=== PATIENT | female | born 1985 | race Caucasian/White ===

== ENCOUNTER 2016-12-26 12:54 | Emergency (ER) | payer OTHER ==
[2016-12-26 13:01] VITALS: BP 107/50; PULSE 100; RESP 18; TEMP 98.9
[2016-12-26] MEDS ORDERED: LIDOCAINE 5% PATCH TOPICAL STA (13:22)
--- NOTE | 2016-12-26 13:23 | ED ---
Back Pain HPI - General Chief Complaint: Back Pain/Injury Stated Complaint: Back Pain Time Seen by Provider: 12/26/16 13:06 Source: patient Limitations: no limitations - History of Present Illness Initial Comments: Patient is a 31-year-old female with history of degenerative disc disease presenting with left back pain. Onset was last night. Patient states she was playing games with her son and a "nicolette chair." Once patient got out of the chair she had left-sided pain which was not relieved with [place], Motrin or heating pad. If patient lays still there is no pain. Patient denies history of IV drug abuse, prolonged corticosteroids, trauma, history of cancer. Patient denies any weakness or numbness. Denies saddle anesthesia. Denies any comments of bowel or bladder. - Related Data Home Medications Medication Instructions Recorded Confirmed Ibuprofen [Motrin] 400 - 800 mg PO Q6HR PRN 11/04/16 11/04/16 Previous Rx's Medication Instructions Recorded Cyclobenzaprine [Flexeril] 5 mg PO HS PRN #14 tab 11/04/16 HYDROcodone/APAP 5-325MG [[place] 1 - 2 tab PO Q6HR PRN #20 tab 11/04/16 5-325] Cyclobenzaprine [Flexeril] 5 mg PO TID PRN #14 tablet 12/26/16 HYDROcodone/APAP 5-325MG [[place] 5] 1 each PO Q6HR PRN #6 tab 12/26/16 Ibuprofen [Motrin] 600 mg PO Q6HR PRN #20 tab 12/26/16 Allergies Allergy/AdvReac Type Severity Reaction Status Date / Time No Known Allergies Allergy Verified 12/26/16 13:01 Review of Systems ROS Statement: Those systems with pertinent positive or pertinent negative responses have been documented in the HPI. Constitutional: No fever and no chills. HENT: No congestion, no rhinorrhea and no sore throat. Eyes: No discharge and no redness. Respiratory: No cough and no shortness of breath. Cardiovascular: No chest pain and no palpitations. Gastrointestinal: No nausea, no vomiting, no abdominal pain and no diarrhea. Genitourinary: No dysuria and no hematuria. Musculoskeletal: +back pain and no arthralgias. Skin: No pallor and no rash. Neurological: No dizziness and No headaches. ROS Other: All systems not noted in ROS Statement are negative. Past Medical History Past Medical History: No Reported History Additional Past Medical History / Comment(s): DDD, low back pain History of Any Multi-Drug Resistant Organisms: MRSA Date of last positivie culture/infection: 2012 MDRO Source:: left hand Past Surgical History: Tonsillectomy Past Anesthesia/Blood Transfusion Reactions: No Reported Reaction Past Psychological History: Anxiety Additional Psychological History / Comment(s): Pt resides with significant other. She is independent. Smoking Status: Current every day smoker Past Alcohol Use History: Occasional Additional Past Alcohol Use History / Comment(s): Pt states she started smoking at age 16 yrs (2000) Past Drug Use History: Marijuana Additional Drug Use History / Comment(s): Pt states she smokes marijuana on occasion. - Past Family History Father Family Medical History: No Reported History Additional Family Medical History / Comment(s): Father is healthy Mother Family Medical History: No Reported History Additional Family Medical History / Comment(s): Mother is healthy General Exam - General Exam Comments Initial Comments: Constitutional: Patient appears well-developed and well-nourished. Mild distress with movement. Head: Normocephalic and atraumatic. Eyes: Conjunctivae and EOM are normal. Right eye exhibits no discharge. Left eye exhibits no discharge. No scleral icterus. Neck: Normal range of motion. Neck supple. Cardiovascular: Normal rate and regular rhythm. No murmur heard. Pulmonary/Chest: Effort normal and breath sounds normal. No respiratory distress. No wheezes. Abdominal: Soft. No distension. There is no tenderness. There is no rebound and no guarding. Musculoskeletal: Patient with point muscular tenderness to left lower lumbar region. No numbness of lower extremities. No saddle anesthesia. Negative straight leg bilaterally. Distal pulses, sensation, motor intact. Neurological: Patient alert and oriented to person, place, and time. Skin: Skin is warm and dry. Not diaphoretic. No rash. Nursing notes and vitals reviewed. Limitations: no limitations Course Vital Signs 12/26/16 12:59 Temperature 98.9 F Pulse Rate 100 Respiratory 18 Rate Blood Pressure 107/50 O2 Sat by Pulse 97 Oximetry - Reevaluation(s) Reevaluation #1: 12/26/16 13:33 Patient requesting refill of [place] for which was written for #20 last time and October 2016. Informed patient that I will give her #6 and use lidocaine, Motrin and Flexeril. Patient agreeable with the plan. Medical Decision Making - Medical Decision Making Patient is a 31-year-old female presenting with nontraumatic back pain. Patient with point tenderness to left lower muscle a lumbar region. No saddle anesthesia; no bowel or bladder incontinence. Patient can be treated outpatient with pain regimen including lidocaine patch, [place], Flexeril and Motrin. Patient Prior to discharge, patient was resting comfortably in bed. Course of stay improved. Tolerable pain but home pain plan in place. Discussed physical exam and diagnostic tests with patient. Questions answered and patient is agreeable to discharge with close follow up with Primary Care Physician. Instructed to return to Emergency Department if symptoms worsen. Disposition Clinical Impression: Back pain Disposition: HOME SELF-CARE Condition: Good Instructions: Acute Low Back Pain (ED) Prescriptions: HYDROcodone/APAP 5-325MG [[place] 5] 1 each PO Q6HR PRN #6 tab PRN Reason: Severe Pain Ibuprofen [Motrin] 600 mg PO Q6HR PRN #20 tab PRN Reason: Pain Cyclobenzaprine [Flexeril] 5 mg PO TID PRN #14 tablet PRN Reason: Spasms Referrals: Enrrique Rivero MD [Primary Care Provider] - 1-2 days
== END 2016-12-26 13:36 | disposition home or self-care (01) ==
LOC: EC 12:54
DX: M54.5 Low back pain (principal); M51.36 Other intervertebral disc degeneration, lumbar region; F17.200 Nicotine dependence, unspecified, uncomplicated
CPT/HCPCS: 99283

== ENCOUNTER 2017-01-20 10:43 | Emergency (ER) | payer OTHER ==
--- NOTE | 2017-01-20 12:58 | ED ---
Skin/Abscess/FB HPI - General Chief complaint: Skin/Abscess/Foreign Body Stated complaint: hand swelling Time Seen by Provider: 01/20/17 12:30 Source: patient, RN notes reviewed Mode of arrival: ambulatory Limitations: no limitations - History of Present Illness Initial comments: Patient is 31-year-old female presents to the emergency room for evaluation of right hand pain, redness and swelling. Patient states swelling began on Wednesday. Patient states she noticed she had a mosquito bite appearing lesion on her right hand that has significantly gotten larger since then. Patient states she had the same thing happened to her about 10 months ago. Patient states she ended up being admitted for 2 days with IV antibiotics. Patient states she is having significant 10 out of 10 pain on her right hand. Patient states the area became significantly more swollen and red over the entire back of her hand today. Patient states it hurts to move her fingers or form a fist. Patient denies any fevers or chills. Patient denies numbness or tingling in her fingers. Patient denies any specific injury or trauma to her hand. Patient denies recent blood work done in that area or IV placed. Patient denies IV drug use. - Related Data Home Medications Medication Instructions Recorded Confirmed Ibuprofen [Motrin] 600 mg PO Q8HR PRN 01/20/17 01/20/17 Previous Rx's Medication Instructions Recorded Amoxicillin/Potassium Clav 1 each PO Q12HR #20 tab 01/20/17 [Augmentin 875-125 Tablet] HYDROcodone/APAP 5-325MG [[place] 1 tab PO Q6HR PRN #12 tab 01/20/17 5-325] Sulfamethox-Tmp 800-160Mg [Bactrim 2 each PO Q12HR 10 Days 01/20/17 Ds] Allergies Allergy/AdvReac Type Severity Reaction Status Date / Time No Known Allergies Allergy Verified 01/20/17 12:50 Review of Systems ROS Statement: Those systems with pertinent positive or pertinent negative responses have been documented in the HPI. ROS Other: All systems not noted in ROS Statement are negative. Past Medical History Past Medical History: No Reported History Additional Past Medical History / Comment(s): DDD, low back pain History of Any Multi-Drug Resistant Organisms: MRSA Date of last positivie culture/infection: 2012 MDRO Source:: left hand Past Surgical History: Tonsillectomy Past Anesthesia/Blood Transfusion Reactions: No Reported Reaction Past Psychological History: Anxiety Additional Psychological History / Comment(s): Pt resides with significant other. She is independent. Smoking Status: Current every day smoker Past Alcohol Use History: Occasional Additional Past Alcohol Use History / Comment(s): Pt states she started smoking at age 16 yrs (2000) Past Drug Use History: Marijuana Additional Drug Use History / Comment(s): Pt states she smokes marijuana on occasion. - Past Family History Father Family Medical History: No Reported History Additional Family Medical History / Comment(s): Father is healthy Mother Family Medical History: No Reported History Additional Family Medical History / Comment(s): Mother is healthy General Exam - General Exam Comments Initial Comments: Sitting in exam room in no acute distress. Limitations: no limitations General appearance: alert, in no apparent distress Head exam: Present: atraumatic, normocephalic, normal inspection Eye exam: Present: normal appearance ENT exam: Present: normal exam Neck exam: Present: normal inspection Respiratory exam: Absent: respiratory distress Right Hand Wrist exam: Present: tenderness (Tenderness on palpating over the dorsal mid hand over the fourth and fifth metacarpal bones.), swelling (Dorsal portion of the hand), erythema (Dorsal hand) Vascular: Present: normal capillary refill (Capillary refill less than 2 seconds ), radial pulse (2+), ulnar pulse (2+) Back exam: Present: normal inspection Neurological exam: Present: alert, oriented X3, CN II-XII intact, normal gait Psychiatric exam: Present: normal affect, normal mood Skin exam: Present: warm, dry, intact, normal color. Absent: rash Course Vital Signs 01/20/17 01/20/17 01/20/17 10:56 14:00 15:31 Temperature 98.6 F 98.2 F 98.3 F Pulse Rate 79 80 84 Respiratory 16 18 20 Rate Blood Pressure 136/76 129/80 126/80 O2 Sat by Pulse 100 99 98 Oximetry Medical Decision Making - Medical Decision Making Patient is a 31-year-old female presents to the emergency room for evaluation of right hand cellulitis. WBC normal limits. Patient is afebrile. Patient states she is feeling better after pain medications given. Patient's past records were reviewed. Last time patient was here for this issue she had failed outpatient treatment. It appeared that patient was admitted with IV Vanco and symptoms began to resolve. I did discuss the option of admission for patient since she had failed outpatient last time. Patient states it was because she never got her Augmentin filled last time she had this issue. Patient refused admission and would rather try outpatient therapy first. Will send patient home with Augmentin and Bactrim. Advised patient to return for any worsening symptoms. Patient states she understands everything that was discussed with her. Case discussed with Dr. Wilburn. - Lab Data Result diagrams: 01/20/17 13:11 01/20/17 14:12 Lab Results 01/20/17 01/20/17 01/20/17 Range/Units 13:11 13:11 14:12 WBC 10.3 (3.8-10.6) k/uL RBC 4.49 (3.80-5.40) m/uL Hgb 13.4 (11.4-16.0) gm/dL Hct 41.5 (34.0-46.0) % MCV 92.3 (80.0-100.0) fL MCH 29.8 (25.0-35.0) pg MCHC 32.3 (31.0-37.0) g/dL RDW 13.3 (11.5-15.5) % Plt Count 373 (150-450) k/uL Neutrophils % 66 % Lymphocytes % 27 % Monocytes % 4 % Eosinophils % 1 % Basophils % 0 % Neutrophils # 6.8 (1.3-7.7) k/uL Lymphocytes # 2.8 (1.0-4.8) k/uL Monocytes # 0.4 (0-1.0) k/uL Eosinophils # 0.1 (0-0.7) k/uL Basophils # 0.0 (0-0.2) k/uL Sodium 142 (137-145) mmol/L Potassium 4.2 (3.5-5.1) mmol/L Chloride 103 (98-107) mmol/L Carbon Dioxide 27 (22-30) mmol/L Anion Gap 12 mmol/L BUN 6 L (7-17) mg/dL Creatinine 0.73 (0.52-1.04) mg/dL Est GFR (MDRD) Af Amer >60 (>60 ml/min/1.73 sqM) Est GFR (MDRD) Non-Af >60 (>60 ml/min/1.73 sqM) Glucose 91 (74-99) mg/dL Plasma Lactic Acid [place] 0.7 (0.7-2.0) mmol/L Calcium 9.8 (8.4-10.2) mg/dL Total Bilirubin 0.4 (0.2-1.3) mg/dL AST 17 (14-36) U/L ALT 22 (9-52) U/L Alkaline Phosphatase 65 (38-126) U/L Total Protein 7.5 (6.3-8.2) g/dL Albumin 4.4 (3.5-5.0) g/dL - Radiology Data Radiology results: report reviewed, image reviewed Disposition Clinical Impression: Cellulitis of right hand Disposition: HOME SELF-CARE Condition: Good Instructions: Cellulitis (ED) Additional Instructions: Take antibiotics as directed. Take ibuprofen as needed for pain. Take [place] as needed for severe pain. If any new symptom arises or symptoms worsen, return to ER as soon as possible. Prescriptions: HYDROcodone/APAP 5-325MG [[place] 5-325] 1 tab PO Q6HR PRN #12 tab PRN Reason: Pain Amoxicillin/Potassium Clav [Augmentin 875-125 Tablet] 1 each PO Q12HR #20 tab Sulfamethox-Tmp 800-160Mg [Bactrim Ds] 2 each PO Q12HR 10 Days Referrals: Enrrique Rivero MD [Primary Care Provider] - 1-2 days Time of Disposition: 15:18
[2017-01-20] MEDS: MORPHINE SULFATE 4 MG/ML SYRINGE IVP STA (13:21)
[2017-01-20] MEDS: MORPHINE SULFATE 10 MG/ML SYRINGE IM STA (13:28)
[2017-01-20] MEDS: MORPHINE SULFATE 4 MG/ML SYRINGE IM STA (13:29)
[2017-01-20 13:31] LABS: Basophils % (A) 0 %; CH 30.4; CHCM 33.1; Eosinophils # (A) 0.1 k/uL (0-0.7); Eosinophils % (A) 1 %; HCT 41.5 % (34.0-46.0); HDW 2.46; HGB 13.4 gm/dL (11.4-16.0); Luc % (Auto) 2; Lymphocytes # (A) 2.8 k/uL (1.0-4.8); Lymphocytes % (A) 27 %; MCH 29.8 pg (25.0-35.0); MCHC 32.3 g/dL (31.0-37.0); MCV 92.3 fL (80.0-100.0); Mean Platelet Volume 7.3; Monocytes # (A) 0.4 k/uL (0-1.0); Monocytes % (A) 4 %; Neutrophils # (A) 6.8 k/uL (1.3-7.7); Neutrophils % (A) 66 %; RBC 4.49 m/uL (3.80-5.40); RDW 13.3 % (11.5-15.5); WBC 10.3 k/uL (3.8-10.6); WBC (Perox) 10.61
--- NOTE | 2017-01-20 14:11 | XR ---
EXAMINATION TYPE: XR hand complete RT DATE OF EXAM: 01/20/2017 1:56 PM CLINICAL HISTORY: Pain and swelling worse over fourth and fifth digits TECHNIQUE: Frontal, lateral and oblique images of the right hand are obtained. COMPARISON: Right hand x-ray May 12, 2016 FINDINGS: There is no acute fracture/dislocation evident in the right hand. The joint spaces in the right hand appear within normal limits. The overlying soft tissue appears unremarkable. IMPRESSION: There is no acute fracture or dislocation in the right hand.
[2017-01-20 14:32] LABS: ALT 22 U/L (9-52); AST 17 U/L (14-36); Alkaline Phosphatase 65 U/L (38-126); Anion Gap 12 mmol/L; Blood Urea Nitrogen 6 mg/dL (7-17); Calcium 9.8 mg/dL (8.4-10.2); Carbon Dioxide 27 mmol/L (22-30); Chloride 103 mmol/L (98-107); Glucose 91 mg/dL (74-99); Non-African American GFR(MDRD) >60 (>60 ml/min/1.73 sqM); Potassium 4.2 mmol/L (3.5-5.1); Sodium 142 mmol/L (137-145); Total Bilirubin 0.4 mg/dL (0.2-1.3); Total Protein 7.5 g/dL (6.3-8.2)
[2017-01-20] MEDS: AMOXIC-POT CLAV 875-125MG 1 EACH TAB PO STA (15:27)
[2017-01-20] MEDS: SULFAMETHOX-TMP 800-160MG 1 EACH TAB PO STA (15:27)
[2017-01-20 15:33] VITALS: BP 126/80; PULSE 84; RESP 20; TEMP 98.3
== END 2017-01-20 15:31 | disposition home or self-care (01) ==
LOC: EC 10:43
DX: L03.113 Cellulitis of right upper limb (principal); F17.200 Nicotine dependence, unspecified, uncomplicated
CPT/HCPCS: 36415; 80053; 83605; 85025; 87040; 73130; 99283; 96372; J2270

== ENCOUNTER 2017-04-01 02:08 | Emergency (ER) | payer OTHER ==
[2017-04-01 02:15] VITALS: BP 90/54; PULSE 93; RESP 18; TEMP 98.2
[2017-04-01] MEDS ORDERED: KETOROLAC 30 MG/ML 1 ML VIAL IM STA (02:17)
[2017-04-01] MEDS ORDERED: ORPHENADRINE 30 MG/ML 2 ML VIAL IM STA (02:17)
--- NOTE | 2017-04-01 02:41 | ED ---
Back Pain HPI - General Chief Complaint: Back Pain/Injury Stated Complaint: Back Pain/Injury Time Seen by Provider: 04/01/17 02:17 Source: patient, RN notes reviewed, old records reviewed Limitations: no limitations - History of Present Illness Initial Comments: This is a 32 year old female with lower back pain after picking up a heavy box of glasswear. PAtient reports she felt a pulling and a popping sensation. Patient has no numbness or tingling. Reports history of DDD. She reports the pain is worse with position. Reports it was painful until she was able to get in a bathtub and have her muscle started to relax a little bit until she could come here. Patient reports the pain is mainly over the spine. Denies any flank tenderness. Patient denies any history or chance of .Patient denies any recent fever, chills, shortness of breath, chest pain, abdominal pain , nausea vomiting, numbness or tingling, dysuria or hematuria, constipation or diarrhea, headaches or visual changes, or any other current symptoms - Related Data Previous Rx's Medication Instructions Recorded Cyclobenzaprine [Flexeril] 10 mg PO TID #15 tab 04/01/17 Ibuprofen [Motrin] 800 mg PO TID #15 tab 04/01/17 traMADol HCl [Ultram] 50 mg PO Q4H PRN #12 tab 04/01/17 Allergies Allergy/AdvReac Type Severity Reaction Status Date / Time No Known Allergies Allergy Verified 01/20/17 12:50 Review of Systems ROS Statement: Those systems with pertinent positive or pertinent negative responses have been documented in the HPI. ROS Other: All systems not noted in ROS Statement are negative. Past Medical History Past Medical History: No Reported History Additional Past Medical History / Comment(s): DJD, low back pain History of Any Multi-Drug Resistant Organisms: MRSA Date of last positivie culture/infection: 2012 MDRO Source:: left hand Past Surgical History: Tonsillectomy Past Anesthesia/Blood Transfusion Reactions: No Reported Reaction Past Psychological History: Anxiety Additional Psychological History / Comment(s): Pt resides with significant other. She is independent. Smoking Status: Current every day smoker Past Alcohol Use History: Occasional Additional Past Alcohol Use History / Comment(s): Pt states she started smoking at age 16 yrs (2000) Past Drug Use History: None Reported Additional Drug Use History / Comment(s): Pt states she smokes marijuana on occasion. - Past Family History Father Family Medical History: No Reported History Additional Family Medical History / Comment(s): Father is healthy Mother Family Medical History: No Reported History Additional Family Medical History / Comment(s): Mother is healthy General Exam - General Exam Comments Initial Comments: Well-appearing 32-year-old female. No distress. Limitations: no limitations General appearance: alert, in no apparent distress Head exam: Present: atraumatic, normocephalic, normal inspection Eye exam: Present: normal appearance, PERRL, EOMI. Absent: scleral icterus, conjunctival injection, periorbital swelling ENT exam: Present: normal exam, mucous membranes moist Neck exam: Present: normal inspection. Absent: tenderness, meningismus, lymphadenopathy Respiratory exam: Present: normal lung sounds bilaterally. Absent: respiratory distress, wheezes, rales, rhonchi, stridor Cardiovascular Exam: Present: regular rate, normal rhythm, normal heart sounds. Absent: systolic murmur, diastolic murmur, rubs, gallop, clicks GI/Abdominal exam: Present: soft, normal bowel sounds. Absent: distended, tenderness, guarding, rebound, rigid Extremities exam: Present: normal inspection, full ROM, normal capillary refill. Absent: tenderness, pedal edema, joint swelling, calf tenderness Back exam: Present: normal inspection, full ROM, tenderness (over lower thoracic and lumbar spine. No paraspinal tenderness) Neurological exam: Present: alert, oriented X3, CN II-XII intact Psychiatric exam: Present: normal affect, normal mood Skin exam: Present: warm, dry, intact, normal color. Absent: rash Course Vital Signs 04/01/17 02:11 Temperature 98.2 F Pulse Rate 93 Respiratory 18 Rate Blood Pressure 90/54 O2 Sat by Pulse 100 Oximetry - Reevaluation(s) Reevaluation #1: 04/01/17 03:32 At this time I went to reevaluate the patient and inform her of results and discharge her and she was missing from the room. No evidence of her belongings are there as well. We did try to contact the patient from calling her. The son would rate a few times and then it would hang up. At this time patient will be discharged with muscle relaxer, anti-inflammatory medicines and pain medication. Patient scripts will be held until morning we'll try to get a hold of her again. At this time I'll discharge the patient is leaving AMA. Medical Decision Making - Medical Decision Making Physical 32-year-old female chief complaint of lower thoracic and lumbar back pain after lifting a heavy box class. Patient reports that the that time she felt a popping sensation in her back. She denies any specific numbness or tingling down her legs. She reports the pain is worse with position. Reports it was painful until she was able to get in a bathtub and have her muscle started to relax a little bit until she could come here. Patient received IM Norflex and Toradol. She received lumbar and thoracic spine x-rays. Both are negative for any acute process. We will obtain from the patient results patient did leave the room. I'll discharge the patient with pain medication muscle relaxers and anti-inflammatory however she is 9 the room. Patient will be discharged AMA. - Lab Data Lab Results 04/01/17 Range/Units 02:26 Urine HCG, Qual Not Detected (Not Detectd) - Radiology Data Radiology results: report reviewed Lumbar and thoracic spine x-rays were obtained and show no evidence of any acute abnormalities. No evidence of spondylolisthesis or spondylolysis. Disposition Clinical Impression: Mechanical back pain Disposition: Left Against Medical Advice Condition: Good Instructions: Acute Low Back Pain (ED), Back Pain (ED) Additional Instructions: restaurant rest, apply heat and ice to lower back. Patient should take muscle relaxers and pain medication prescribed. Return to the emergency department if any alarming signs or symptoms occur. Prescriptions: Cyclobenzaprine [Flexeril] 10 mg PO TID #15 tab Ibuprofen [Motrin] 800 mg PO TID #15 tab traMADol HCl [Ultram] 50 mg PO Q4H PRN #12 tab PRN Reason: Pain Referrals: Enrrique Rivero MD [Primary Care Provider] - 1-2 days Time of Disposition: 03:17
--- NOTE | 2017-04-01 03:07 | XR ---
EXAM: XR Thoracic Spine, 3 Views CLINICAL HISTORY: Reason: Lifting injury, back pain TECHNIQUE: Frontal, lateral and swimmer's views of the thoracic spine. COMPARISON: Total spine radiographs on 06/24/2015 FINDINGS: Bones: No acute fracture or subluxation. Stable minimal levoconvex curvature of the upper thoracic spine. Soft tissues: Normal. IMPRESSION: No acute abnormality identified.
--- NOTE | 2017-04-01 03:09 | XR ---
EXAM: XR Lumbar Spine, 2 or 3 Views CLINICAL HISTORY: Reason: Pain TECHNIQUE: Frontal and lateral views of the lumbar spine. COMPARISON: Total spine radiographs on 06/24/2015 FINDINGS: Bones: No acute fracture or subluxation identified. Again noted are 4 [id number] lumbar vertebral bodies. Soft tissues: Normal. IMPRESSION: No acute abnormality identified.
== END 2017-04-01 03:33 | disposition left against medical advice (07) ==
LOC: EC 02:08
DX: M54.5 Low back pain (principal); M54.6 Pain in thoracic spine; F17.200 Nicotine dependence, unspecified, uncomplicated; X50.0XXA Overexertion from strenuous movement or load, initial encounter
CPT/HCPCS: 81025; 72070; 72100; 99284; 96372 ×2; J2360; J1885

== ENCOUNTER 2017-04-13 21:18 | Observation (INO) | payer OTHER ==
[2017-04-13] MEDS ORDERED: ONDANSETRON 4 MG/2 ML VIAL IVP STA (22:32)
[2017-04-13] MEDS ORDERED: SODIUM CHLORIDE 0.9% 1,000 ML IV STA (22:32)
[2017-04-13] MEDS ORDERED: RX INFO: IV CONTRAST WAS GIVEN 1 EACH MISC MISCELLANE PRN (22:32)
[2017-04-13] MEDS ORDERED: HYDROmorphone 1 MG/ML 1 ML SYRINGE IVP STA (22:32)
--- NOTE | 2017-04-13 22:46 | ED ---
Abdominal Pain HPI - General Chief Complaint: Abdominal Pain Stated Complaint: colitis Time Seen by Provider: 04/13/17 21:53 Source: patient, RN notes reviewed Mode of arrival: ambulatory Limitations: no limitations - History of Present Illness Initial Comments: 32-year-old female presents to the emergency department with a chief complaint of abdominal cramping. Patient states she has a history of colitis. Patient states that she started abdominal pain nausea vomiting. Patient states that this is much at the symptoms she is having the past and she was admitted for colitis. Patient denies any fever chills with this. Patient states she just continues to have this cramping and this nausea vomiting so she thought that she should be evaluated. Patient denies any other symptoms at this time. Patient denies any history of Crohn's or ulcerative colitis. Patient denies any recent fever, chills, shortness of breath, chest pain, back pain, numbness or tingling, dysuria or hematuria, constipation or diarrhea, headaches or visual changes, or any other current symptoms. - Related Data Previous Rx's Medication Instructions Recorded Cyclobenzaprine [Flexeril] 10 mg PO TID #15 tab 04/01/17 Ibuprofen [Motrin] 800 mg PO TID #15 tab 04/01/17 traMADol HCl [Ultram] 50 mg PO Q4H PRN #12 tab 04/01/17 Allergies Allergy/AdvReac Type Severity Reaction Status Date / Time No Known Allergies Allergy Verified 04/13/17 21:51 Review of Systems ROS Statement: Those systems with pertinent positive or pertinent negative responses have been documented in the HPI. ROS Other: All systems not noted in ROS Statement are negative. Past Medical History Past Medical History: No Reported History Additional Past Medical History / Comment(s): DJD, low back pain, colitis History of Any Multi-Drug Resistant Organisms: MRSA Date of last positivie culture/infection: 2012 MDRO Source:: left hand Past Surgical History: Tonsillectomy Past Anesthesia/Blood Transfusion Reactions: No Reported Reaction Past Psychological History: Anxiety Additional Psychological History / Comment(s): Pt resides with significant other. She is independent. Smoking Status: Current every day smoker Past Alcohol Use History: Occasional Additional Past Alcohol Use History / Comment(s): Pt states she started smoking at age 16 yrs (2000) Past Drug Use History: Marijuana Additional Drug Use History / Comment(s): Pt states she smokes marijuana on occasion. - Past Family History Father Family Medical History: No Reported History Additional Family Medical History / Comment(s): Father is healthy Mother Family Medical History: No Reported History Additional Family Medical History / Comment(s): Mother is healthy General Exam - General Exam Comments Initial Comments: General: The patient is awake and alert, in no distress, and does not appear acutely ill. Eye: Pupils are equal, round and reactive to light, extra-ocular movements are intact; there is normal conjunctiva bilaterally. No signs of icterus. Ears, nose, mouth and throat: There are moist mucous membranes and no oral lesions. Neck: The neck is supple, there is no tenderness. Cardiovascular: There is a regular rate and rhythm. No murmur, rub or gallop is appreciated. Respiratory: Lungs are clear to auscultation, respirations are non-labored, breath sounds are equal. No wheezes, stridor, rales, or rhonchi. Gastrointestinal: Soft, non-distended, non-tender abdomen without masses or organomegaly noted. There is no rebound or guarding present. No CVA tenderness. Bowel sounds are unremarkable. Back: There is no tenderness to palpation in the midline. There is no obvious deformity. No rashes noted. Musculoskeletal: Normal ROM, no tenderness, There is no pedal edema. There is no calf tenderness or swelling. Sensation intact. Pulses equal bilaterally 2+. Neurological: CN II-XII intact, There are no obvious motor or sensory deficits. Coordination appears grossly intact. Speech is normal. Skin: Skin is warm and dry and no rashes or lesions are noted. Psychiatric: Cooperative, appropriate mood & affect, normal judgment. Limitations: no limitations Course Vital Signs 04/13/17 04/14/17 21:33 00:02 Temperature 99.6 F Pulse Rate 78 89 Respiratory 18 18 Rate Blood Pressure 138/96 150/87 O2 Sat by Pulse 98 100 Oximetry Medical Decision Making - Medical Decision Making 32-year-old female presents emergency Department chief complaint of abdominal cramping and nausea vomiting with history of colitis. This patient is feeling better with the medication however due to her elevated white blood cell, we will admit her for possible colitis. We will start Cipro Flagyl for the patient and have GI consult to evaluate the patient. This is discussed with the patient who is negative plan and all questions have been answered. We will admit patient at this time. - Lab Data Result diagrams: 04/13/17 22:45 04/13/17 22:45 Lab Results 04/13/17 04/13/17 04/13/17 Range/Units 22:45 22:45 22:45 WBC 23.0 H (3.8-10.6) k/uL RBC 4.90 (3.80-5.40) m/uL Hgb 14.8 (11.4-16.0) gm/dL Hct 45.2 (34.0-46.0) % MCV 92.2 (80.0-100.0) fL MCH 30.3 (25.0-35.0) pg MCHC 32.8 (31.0-37.0) g/dL RDW 13.8 (11.5-15.5) % Plt Count 375 (150-450) k/uL Neutrophils % 89 % Lymphocytes % 7 % Monocytes % 3 % Eosinophils % 0 % Basophils % 0 % Neutrophils # 20.4 H (1.3-7.7) k/uL Lymphocytes # 1.6 (1.0-4.8) k/uL Monocytes # 0.7 (0-1.0) k/uL Eosinophils # 0.1 (0-0.7) k/uL Basophils # 0.0 (0-0.2) k/uL Sodium 140 (137-145) mmol/L Potassium 4.5 (3.5-5.1) mmol/L Chloride 100 (98-107) mmol/L Carbon Dioxide 27 (22-30) mmol/L Anion Gap 13 mmol/L BUN 12 (7-17) mg/dL Creatinine 0.85 (0.52-1.04) mg/dL Est GFR (MDRD) Af Amer >60 (>60 ml/min/1.73 sqM) Est GFR (MDRD) Non-Af >60 (>60 ml/min/1.73 sqM) Glucose 118 H (74-99) mg/dL Plasma Lactic Acid K[place] (0.7-2.0) mmol/L Calcium 10.1 (8.4-10.2) mg/dL Total Bilirubin 0.8 (0.2-1.3) mg/dL AST 18 (14-36) U/L ALT 24 (9-52) U/L Alkaline Phosphatase 63 (38-126) U/L Total Protein 8.3 H (6.3-8.2) g/dL Albumin 5.0 (3.5-5.0) g/dL Urine Color Urine Appearance (Clear) Urine pH (5.0-8.0) Ur Specific [place] (1.001-1.035) Urine Protein (Negative) Urine Glucose (UA) (Negative) Urine Ketones (Negative) Urine Blood (Negative) Urine Nitrite (Negative) Urine Bilirubin (Negative) Urine Urobilinogen (<2.0) mg/dL Ur Leukocyte Esterase (Negative) Urine RBC (0-5) /hpf Urine WBC (0-5) /hpf Ur Squamous Epith Cells (0-4) /hpf Hyaline Casts (0-2) /lpf Urine Mucus (None) /hpf Urine HCG, Qual Not Detected (Not Detectd) 04/13/17 04/13/17 Range/Units 22:45 22:45 WBC (3.8-10.6) k/uL RBC (3.80-5.40) m/uL Hgb (11.4-16.0) gm/dL Hct (34.0-46.0) % MCV (80.0-100.0) fL MCH (25.0-35.0) pg MCHC (31.0-37.0) g/dL RDW (11.5-15.5) % Plt Count (150-450) k/uL Neutrophils % % Lymphocytes % % Monocytes % % Eosinophils % % Basophils % % Neutrophils # (1.3-7.7) k/uL Lymphocytes # (1.0-4.8) k/uL Monocytes # (0-1.0) k/uL Eosinophils # (0-0.7) k/uL Basophils # (0-0.2) k/uL Sodium (137-145) mmol/L Potassium (3.5-5.1) mmol/L Chloride (98-107) mmol/L Carbon Dioxide (22-30) mmol/L Anion Gap mmol/L BUN (7-17) mg/dL Creatinine (0.52-1.04) mg/dL Est GFR (MDRD) Af Amer (>60 ml/min/1.73 sqM) Est GFR (MDRD) Non-Af (>60 ml/min/1.73 sqM) Glucose (74-99) mg/dL Plasma Lactic Acid K[place] 1.8 (0.7-2.0) mmol/L Calcium (8.4-10.2) mg/dL Total Bilirubin (0.2-1.3) mg/dL AST (14-36) U/L ALT (9-52) U/L Alkaline Phosphatase (38-126) U/L Total Protein (6.3-8.2) g/dL Albumin (3.5-5.0) g/dL Urine Color Yellow Urine Appearance Cloudy H (Clear) Urine pH 6.0 (5.0-8.0) Ur Specific [place] 1.029 (1.001-1.035) Urine Protein 2+ H (Negative) Urine Glucose (UA) Negative (Negative) Urine Ketones 4+ H (Negative) Urine Blood Moderate H (Negative) Urine Nitrite Negative (Negative) Urine Bilirubin 1+ H (Negative) Urine Urobilinogen 3.0 (<2.0) mg/dL Ur Leukocyte Esterase Trace H (Negative) Urine RBC 36 H (0-5) /hpf Urine WBC 10 H (0-5) /hpf Ur Squamous Epith Cells 8 H (0-4) /hpf Hyaline Casts 13 H (0-2) /lpf Urine Mucus Many H (None) /hpf Urine HCG, Qual (Not Detectd) - Radiology Data Radiology results: report reviewed, image reviewed Disposition Clinical Impression: Colitis, Nausea & vomiting Disposition: ADMITTED IP TO THIS [facility] Condition: Stable Referrals: Enrrique Rivero MD [Primary Care Provider] - 1-2 days Time of Disposition: 00:58 Decision Date: 04/14/17 Decision Time: 00:58
[2017-04-13 23:06] LABS: Appearance,Urine Cloudy (Clear); Bilirubin,Urine 1+ (Negative); Glucose,Urine (UA) Negative (Negative); Ketones,Urine 4+ (Negative); Leukocyte Esterase,Urine Trace (Negative); Mucus,Urine Many /hpf; Nitrite,Urine Negative (Negative); Particle Count 17584; Protein,Urine 2+ (Negative); RBC,Urine 36 /hpf (0-5); Specific Gravity,Urine 1.029 (1.001-1.035); Squamous Epithelial Cell,Urine 8 /hpf (0-4); UA Billing (MACRO vs. MICRO) MICRO; WBC,Urine 10 /hpf (0-5)
[2017-04-13 23:11] LABS: ALT 24 U/L (9-52); AST 18 U/L (14-36); Alkaline Phosphatase 63 U/L (38-126); Anion Gap 13 mmol/L; Blood Urea Nitrogen 12 mg/dL (7-17); Calcium 10.1 mg/dL (8.4-10.2); Carbon Dioxide 27 mmol/L (22-30); Chloride 100 mmol/L (98-107); Glucose 118 mg/dL (74-99); Non-African American GFR(MDRD) >60 (>60 ml/min/1.73 sqM); Potassium 4.5 mmol/L (3.5-5.1); Sodium 140 mmol/L (137-145); Total Bilirubin 0.8 mg/dL (0.2-1.3); Total Protein 8.3 g/dL (6.3-8.2)
[2017-04-13 23:13] LABS: Basophils % (A) 0 %; CH 30.4; CHCM 33.2; Eosinophils # (A) 0.1 k/uL (0-0.7); Eosinophils % (A) 0 %; HCT 45.2 % (34.0-46.0); HDW 2.27; HGB 14.8 gm/dL (11.4-16.0); Luc # (Auto) 0.14; Luc % (Auto) 1; Lymphocytes # (A) 1.6 k/uL (1.0-4.8); Lymphocytes % (A) 7 %; MCH 30.3 pg (25.0-35.0); MCHC 32.8 g/dL (31.0-37.0); MCV 92.2 fL (80.0-100.0); Mean Platelet Volume 7.8; Monocytes # (A) 0.7 k/uL (0-1.0); Monocytes % (A) 3 %; Neutrophils # (A) 20.4 k/uL (1.3-7.7); Neutrophils % (A) 89 %; RDW 13.8 % (11.5-15.5); WBC (Perox) 22.26
[2017-04-14] MEDS ORDERED: METOCLOPRAMIDE 5 MG/ML 2 ML VIAL IVP STA (00:10)
[2017-04-14] MEDS ORDERED: KETOROLAC 30 MG/ML 1 ML VIAL IVP STA (00:10)
--- NOTE | 2017-04-14 00:19 | CT ---
History: Reason: Pain Exam: CT ABDOMEN + PELVIS With Contrast axial images from the lung bases through the ischial tuberosities following administration of 100 cc of Omnipaque 300 contrast intravenously with delayed and multiplanar reformatted images Technique more: CTDI is 5.90 mGy and DLP is 430.90 mGy-cm. Technique more: This CT exam was performed using one or more of the following dose reduction techniques: automated exposure control, adjustment of the mA and/or kV according to patient size, and/or use of iterative reconstruction technique. Comparison: None available FINDINGS: The lung bases are clear. The liver, adrenal glands, kidneys, pancreas, spleen, gallbladder and abdominal aorta appear within limits. No bowel dilation or free air. Normal caliber appendix without secondary signs. The ovaries, uterus, collapsed bladder appear within limits. 1.2 cm follicle left ovary coronal 48. No free fluid. IMPRESSION: The transverse and segments of the proximal descending left colon are underdistended and limit the evaluation of wall thickness.
[2017-04-14] MEDS ORDERED: NALOXONE 0.4 MG/ML 1 ML VIAL IV PRN (00:59)
[2017-04-14] MEDS ORDERED: ACETAMINOPHEN TAB 325 MG TAB PO PRN (00:59)
[2017-04-14] MEDS ORDERED: ONDANSETRON 4 MG/2 ML VIAL IVP PRN (00:59)
[2017-04-14] MEDS ORDERED: metroNIDAZOLE-NS PMX 500 MG in SALINE 1 100ML.BAG IVPB STA (01:00)
[2017-04-14] MEDS ORDERED: LEVOFLOXACIN 500MG-D5W PMX 500 MG in DEXTROSE/WATER 1 100ML.BAG IVPB STA (01:00)
[2017-04-14] MEDS: SODIUM CHLORIDE 0.9% 1,000 ML IV SCH ×4 (01:36→17:02)
[2017-04-14 02:17] VITALS: RESP 16
[2017-04-14] MEDS: HYDROmorphone 1 MG/ML 1 ML SYRINGE IV PRN ×2 (03:22→06:24)
[2017-04-14] MEDS: metroNIDAZOLE-NS PMX 500 MG in SALINE 1 100ML.BAG IVPB SCH ×2 (08:22→17:33)
[2017-04-14] MEDS: PANTOPRAZOLE 40 MG/10 ML VIAL IV SCH (09:43)
--- NOTE | 2017-04-14 10:29 | P.CONS ---
History of Present Illness - Reason for Consult Consult date: 04/14/17 colitis Requesting physician: Joel Garcia - History of Present Illness 32-year-old female admitted with lower abdominal cramping 10 days with a history of recent diagnosis of colitis in [facility] 10 days ago. She was treated with antibiotics and discharged home without antibiotics. No recent travel sick contacts change the medications. Additional PMH right hand cellulitis May 2016, marijuana and nicotine cigarette usage. Denies fever, chills, hematemesis, hematochezia, melena. No history of personal a familial inflammatory bowel disease. Recently evaluated 04/01/2017 in the ER for lower lumbar pain and left AMA. Consultation requested for colitis evaluation. Patient continues to have lower abdominal cramping, nausea vomiting yesterday without bleeding. Averaging 1-2 bowel movements a day sometimes loose sometimes not. No history of these types of symptoms. CT abdomen and pelvis without oral contrast reported transverse and segments the proximal descending colon under distended limit the evaluation of wall thickness. White count 23,000. Hemoglobin 14.8. HCG not detected. Urinalysis cloudy, moderate blood. WBC 10. Urine culture pending. Past Medical History Past Medical History: No Reported History Additional Past Medical History / Comment(s): DJD, low back pain, colitis History of Any Multi-Drug Resistant Organisms: MRSA Year Discovered:: 2012 MDRO Source:: left hand Past Surgical History: Tonsillectomy Past Anesthesia/Blood Transfusion Reactions: No Reported Reaction Past Psychological History: Anxiety Additional Psychological History / Comment(s): Pt resides with friend. She is independent. Smoking Status: Current every day smoker Past Alcohol Use History: Occasional Additional Past Alcohol Use History / Comment(s): Pt states she started smoking at age 16 yrs (2000) Past Drug Use History: Marijuana Additional Drug Use History / Comment(s): Pt states she smokes marijuana on occasion. - Past Family History Father Family Medical History: No Reported History Additional Family Medical History / Comment(s): Father is healthy Mother Family Medical History: No Reported History Additional Family Medical History / Comment(s): Mother is healthy Medications and Allergies Home Medications Medication Instructions Recorded Confirmed Type Hydrocodone/Acetaminophen [[place] 1 tab PO Q6H PRN 04/14/17 04/14/17 History 10-325] Promethazine [Phenergan] 25 mg PO Q6HR PRN 04/14/17 04/14/17 History Allergies Allergy/AdvReac Type Severity Reaction Status Date / Time No Known Allergies Allergy Verified 04/13/17 21:51 Physical Exam Vitals: Vital Signs Temp Pulse Pulse Resp BP BP Pulse Ox 04/14/17 07:00 95 F L 83 16 103/56 97 04/14/17 02:15 98.5 F 85 16 91/60 98 04/14/17 01:20 98.7 F 100 18 104/54 98 04/14/17 00:02 89 18 150/87 100 04/13/17 21:33 99.6 F 78 18 138/96 98 Intake and Output 04/13/17 04/14/17 04/14/17 22:59 06:59 14:59 Intake Total 610 Balance 610 Intake: Intake, IV Titration 560 Amount Levofloxacin 500Mg-D5w 100 Pmx 500 mg In Dextrose/ Water 1 100ml.bag @ 100 mls/hr IVPB Q24H [facility] Rx#: [id number] Sodium Chloride 0.9% 1, 360 000 ml @ 120 mls/hr IV . Q8H20M [facility]ALLY Rx#:[id number] metroNIDAZOLE-NS PMX 500 100 mg In Saline 1 100ml.bag @ 100 mls/hr IVPB Q8HR WALLY Rx#:[id number] Oral 50 Other: Voiding Method Toilet Toilet Weight 58.967 kg General appearance: The patient is alert, oriented, in no acute distress. HET: Head is normocephalic and atraumatic. Pupils are equal and reactive. Oropharynx is clear without lesions. Neck: Supple without lymphadenopathy. Trachea midline. Heart: S1 S2. Regular rate and rhythm. Lungs: No crackles or wheezes are heard. Abdomen: Soft, mild tenderness in the bilateral lower abdomen greater than left and right, nondistended with bowel sounds. No peritoneal signs. No palpable organomegaly or masses. Extremities: Normal skin color and turgor. No cyanosis, rash, ulceration, clubbing, or edema. Radial and pedal pulses are 2/4 bilaterally. Neurological: No focal deficits. Strength and sensation are grossly intact. Results CBC & Chem 7: 04/13/17 22:45 04/13/17 22:45 Labs: Abnormal Lab Results - Last 24 Hours (Table) 04/13/17 04/13/1704/13/17 Range/Units 22:45 22:45 22:45 WBC 23.0 H (3.8-10.6) k/uL Neutrophils # 20.4 H (1.3-7.7) k/uL Glucose 118 H (74-99) mg/dL Total Protein 8.3 H (6.3-8.2) g/dL Urine Appearance Cloudy H (Clear) Urine Protein 2+ H (Negative) Urine Ketones 4+ H (Negative) Urine Blood Moderate H (Negative) Urine Bilirubin 1+ H (Negative) Ur Leukocyte Esterase Trace H (Negative) Urine RBC 36 H (0-5) /hpf Urine WBC 10 H (0-5) /hpf Ur Squamous Epith Cells 8 H (0-4) /hpf Hyaline Casts 13 H (0-2) /lpf Urine Mucus Many H (None) /hpf CT scan - abdomen: report reviewed (Dr. Mistry) Assessment and Plan (1) Abdominal pain Narrative/Plan: Possible self limiting infectious colitis possible inflammatory. Recent hospitalization 10 days ago in [facility] with reported diagnosis of colitis treated with inpatient antibiotics. Status: Acute (2) Leukocytosis Narrative/Plan: Possible UTI Status: Acute Plan: 1. Sed rate CRP. 2. Stool studies if patient has diarrhea. 3. Continue with empiric antibiotics. 4. Will advance to low-residue diet patient is requesting advancement and is hungry. Inpatient colonoscopy is not planned at this time but contingent on clinical course. We'll have patient follow-up in office a week after discharge for reevaluation, if her GI symptoms have not resolved will discuss outpatient colonoscopy. Thank you for this kind referral and the opportunity to participate in the care of your patient. This consultation was discussed with Dr. Mistry. The impression and plan of care have been directed as dictated.
[2017-04-14] MEDS: KETOROLAC 30 MG/ML 1 ML VIAL IVP PRN (11:09)
[2017-04-14] MEDS: HYDROmorphone 1 MG/ML 1 ML SYRINGE IVP PRN ×2 (13:05→19:59)
[2017-04-14] MEDS ORDERED: HYDROcodone/APAP 5-325MG 1 EACH TAB PO PRN (16:32)
[2017-04-14] MEDS: ALPRAZolam 0.25 MG TAB PO PRN (17:45)
--- NOTE | 2017-04-14 20:49 | HP ---
DATE OF ADMISSION: 04/14/2017 HISTORY OF PRESENT ILLNESS: This 32-year-old woman with a past medical history of multiple medical problems, including history of DJD, history of methicillin-resistant Staphylococcus aureus history of anxiety being followed by Dr. Rivero in the outpatient setting apparently was diagnosed to have colitis with abdominal pain and other symptoms in [place] recently. The patient came to [facility] with complaints of nausea and vomiting and other symptoms. Patient did not any fever or chills. The patient unable to keep anything down and evaluation of the white count was found to be elevated up to 23 and patient also had abdomen and pelvis CT scan which showed only limited evaluation because distended for evaluation of the full-thickness. Otherwise, the patient is also seen by gastroenterology as well. There is no history of fever, rigors or chills. There is no history of headache, loss of consciousness or seizures at this time. PAST MEDICAL HISTORY: History of degenerative joint disease. MRSA, tonsillectomy. History of anxiety. Medications prior to admission include home medications are: 1. Phenergan 25 mg q.6 p.r.n. 2. Hydrocodone 10 mg 6 p.r.n. ALLERGIES: None. FAMILY HISTORY: No history of heart disease or strokes in the family. SOCIAL HISTORY: History of THC. History of smoking. REVIEW OF SYSTEMS: ENT: No diminishing hearing. No diminished vision. CARDIOVASCULAR: No angina or palpitations. RESPIRATORY: No cough, hemoptysis. \ GI: As mentioned earlier. : No dysuria. Nervous system: No numbness or weakness. ALLERGY/IMMUNOLOGY: No asthma or hayfever. MUSCULOSKELETAL: As mentioned earlier. HEMATOLOGY/ONCOLOGY: No history of anemia. ENDOCRINE: No history of diabetes, hypothyroidism. CONSTITUTIONAL: As mentioned earlier. RHEUMATOLOGY: Negative. DERMATOLOGY: Negative. PSYCHIATRY: As mentioned earlier. PHYSICAL EXAMINATION: Alert and oriented x3. Pulse 73, blood pressure 98/66, respiration 16, temperature 98.2, pulse ox 100% on room air. HEENT: Conjunctivae normal. Oral mucosa moist. NECK: No jugular venous distention. No carotid bruit. No lymph node enlargement. CARDIOVASCULAR: S1, S2 muffled. RESPIRATORY: Breath sounds diminished at the bases. No rhonchi, no crackles. ABDOMEN: Soft. Mild diffuse discomfort present. No guarding. No rigidity. No mass palpable. No ascites. LEGS: No edema. No swelling. Nervous system: Higher function as mentioned. Moves all four limbs. No focal deficits. LYMPHATICS: No lymph nodes palpable in the neck, axillae or groin. SKIN: No ulcer, rash, bleeding. LABS: WBC 23, hemoglobin 14.8. Total protein is 8.3. UA noted. ASSESSMENT: 1. Abdominal pain and cramps for evaluation. Possible colitis, infectious colitis. 2. Urinary tract infection. 3. Increased WBC. 4. History of degenerative joint disease. 5. History of Methicillin-resistant Staph aureus. 6. History of anxiety. 7. History of nicotine dependence. 8. History of THC. 9. FULL CODE. RECOMMENDATIONS AND DISCUSSION: In this 32-year-old woman who presented with multiple complex medical issues, we will monitor the patient closely, continue with the current medications, continue with the symptomatic treatment. We will initiate empiric antibiotics and continue to monitor. Otherwise, I would recommend cultures. Obtain cultures. Repeat labs. DVT prophylaxis and symptomatic treatment. Otherwise we will continue to monitor. See orders for details. Prognosis guarded. Discussed with the patient. Gastroenterology consultation. The patient understands and agrees. A copy of dictation being forwarded to Dr. Rivero who is the primary care physician. Further recommendations to follow. MTDD
[2017-04-14] MEDS ORDERED: TEMAZEPAM 7.5 MG CAP PO PRN (21:00)
[2017-04-14] MEDS: HEPARIN SODIUM,PORCINE 5,000 UNIT/ML 1 ML VIAL SQ SCH (21:18)
[2017-04-14] MEDS: NICOTINE 14MG/24HR PATCH TRANSDERM SCH (21:19)
[2017-04-14] MEDS ORDERED: LEVOFLOXACIN 500MG-D5W PMX 500 MG in DEXTROSE/WATER 1 100ML.BAG IVPB SCH (23:00)
[2017-04-15] MEDS: metroNIDAZOLE-NS PMX 500 MG in SALINE 1 100ML.BAG IVPB SCH ×2 (00:36→12:36)
[2017-04-15 02:06] VITALS: TEMP 97.8
[2017-04-15] MEDS: KETOROLAC 30 MG/ML 1 ML VIAL IVP PRN (07:32)
[2017-04-15] MEDS: HYDROmorphone 1 MG/ML 1 ML SYRINGE IVP PRN (07:33)
[2017-04-15] MEDS: SODIUM CHLORIDE 0.9% 1,000 ML IV SCH (07:34)
[2017-04-15 07:43] LABS: Basophils # (A) 0.1 k/uL (0-0.2); Basophils % (A) 1 %; CH 30.4; CHCM 32.7; Eosinophils # (A) 0.1 k/uL (0-0.7); Eosinophils % (A) 1 %; HCT 38.7 % (34.0-46.0); HDW 2.29; HGB 12.8 gm/dL (11.4-16.0); Luc % (Auto) 3; Lymphocytes # (A) 2.8 k/uL (1.0-4.8); Lymphocytes % (A) 37 %; MCH 30.8 pg (25.0-35.0); MCHC 32.9 g/dL (31.0-37.0); MCV 93.4 fL (80.0-100.0); Mean Platelet Volume 9.1; Monocytes # (A) 0.5 k/uL (0-1.0); Monocytes % (A) 6 %; Neutrophils # (A) 3.9 k/uL (1.3-7.7); Neutrophils % (A) 52 %; RBC 4.14 m/uL (3.80-5.40); RDW 13.8 % (11.5-15.5); WBC 7.5 k/uL (3.8-10.6); WBC (Perox) 7.32
[2017-04-15 07:44] VITALS: BP 104/69; PULSE 68
[2017-04-15 07:57] LABS: ALT 15 U/L (9-52); AST 17 U/L (14-36); Alkaline Phosphatase 37 U/L (38-126); Anion Gap 9 mmol/L; Blood Urea Nitrogen 10 mg/dL (7-17); Calcium 9.3 mg/dL (8.4-10.2); Carbon Dioxide 21 mmol/L (22-30); Chloride 110 mmol/L (98-107); Glucose 85 mg/dL (74-99); Non-African American GFR(MDRD) >60 (>60 ml/min/1.73 sqM); Potassium 4.7 mmol/L (3.5-5.1); Sodium 140 mmol/L (137-145); Total Bilirubin 0.6 mg/dL (0.2-1.3); Total Protein 6.2 g/dL (6.3-8.2)
[2017-04-15] MEDS: PANTOPRAZOLE 40 MG/10 ML VIAL IV SCH (10:13)
[2017-04-15] MEDS: HEPARIN SODIUM,PORCINE 5,000 UNIT/ML 1 ML VIAL SQ SCH ×2 (10:13→10:19)
[2017-04-15] MEDS: NICOTINE 14MG/24HR PATCH TRANSDERM SCH (10:14)
[2017-04-15] MEDS: ALPRAZolam 0.25 MG TAB PO PRN (10:23)
--- NOTE | 2017-04-15 10:47 | P.PN ---
Subjective Principal diagnosis: Abdominal pain recent colitis 32-year-old female with lower abdominal pain with recent diagnosis of colitis at outside facility 10 days ago. ESR 7. C-reactive protein less than 5. Increased nausea with advanced IHC but this morning is requesting a regular diet. No diarrhea. White count improved. Abdominal pain improved. Objective - Vital Signs Vital signs: Vital Signs Temp 97.8 F 04/15/17 07:00 Pulse 68 04/15/17 07:00 Resp 16 04/15/17 07:00 BP 104/69 04/15/17 07:00 Pulse Ox 96 04/15/17 07:00 Intake & Output 04/14/17 04/15/17 04/15/17 18:59 06:59 18:59 Intake Total 620 1100 Balance 620 1100 Intake: Intake, IV Titration 500 1100 Amount Levofloxacin 500Mg-D5w 100 Pmx 500 mg In Dextrose/ Water 1 100ml.bag @ 100 mls/hr IVPB Q24H [facility] Rx#: [id number] Sodium Chloride 0.9% 1, 900 000 ml @ 75 mls/hr IV . [id number] [facility] Rx#:[id number] cefTRIAXone 1,000 mg In 400 Sodium Chloride 0.9% 50 ml @ 100 mls/hr IVPB DAILY@1200 WALLY Rx#: [id number] metroNIDAZOLE-NS PMX 500 100 100 mg In Saline 1 100ml.bag @ 100 mls/hr IVPB Q8HR WALLY Rx#:[id number] Oral 120 Other: Voiding Method Toilet Toilet # Voids 2 - Exam General appearance: The patient is alert, oriented, in no acute distress. HET: Head is normocephalic and atraumatic. Pupils are equal and reactive. Oropharynx is clear without lesions. Neck: Supple without lymphadenopathy. Trachea midline. Heart: S1 S2. Regular rate and rhythm. Lungs: No crackles or wheezes are heard. Abdomen: Soft, very mild bilateral lower abdominal tenderness, nondistended with bowel sounds. No peritoneal signs. No palpable organomegaly or masses. Extremities: Normal skin color and turgor. No cyanosis, rash, ulceration, clubbing, or edema. Radial and pedal pulses are 2/4 bilaterally. Neurological: No focal deficits. Strength and sensation are grossly intact. - Labs CBC & Chem 7: 04/15/17 07:01 04/15/17 07:01 Labs: Abnormal Lab Results - Last 24 Hours (Table) 04/15/17 Range/Units 07:01 Chloride 110 H (98-107) mmol/L Carbon Dioxide 21 L (22-30) mmol/L Alkaline Phosphatase 37 L (38-126) U/L Total Protein 6.2 L (6.3-8.2) g/dL Microbiology - Last 24 Hours (Table) 04/13/17 22:45 Blood Culture - Preliminary Blood No Growth after 24 hours 04/13/17 22:45 Urine Culture - Preliminary Urine,Voided Assessment and Plan (1) Abdominal pain Narrative/Plan: Possible self limiting infectious colitis possible inflammatory. Recent hospitalization 10 days ago in [facility] with reported diagnosis of colitis treated with inpatient antibiotics. Status: Acute (2) Leukocytosis Narrative/Plan: Possible UTI culture in progress. Leukocytosis improved. Status: Acute Plan: 1. From a GI standpoint agreeable for discharge. 2. Follow up in GI office 7-10 days. 3. Continue antibiotics on discharge for additional 5-7 days. Assessment and plan a care discussed with Dr. Mistry.
--- NOTE | 2017-04-16 17:18 | DS ---
DATE OF ADMISSION: 04/14/2017 DATE OF DISCHARGE: 04/15/2017 FINAL DIAGNOSES: 1. Abdominal pain and cramps for evaluation of possible colitis and infectious colitis improved. 2. Urinary tract infection. 3. Increased WBC. 4. History of degenerative joint disease. 5. History of Methicillin-resistant Staph aureus. 6. History of anxiety. 7. History of nicotine dependence. 8. History of THC. 9. FULL CODE. DISCHARGE DISPOSITION: The patient will be discharged in stable condition with guarded prognosis. Gastroenterology recommend discharge the patient. HISTORY OF PRESENT ILLNESS: This 32 -year-old woman with a past medical history of multiple medical problems with abdominal cramps and possible acute colitis improved with antibiotics. UTI was also noted. On exam, vitals are stable. CARDIOVASCULAR SYSTEM: S1, S2, muffled. ABDOMEN: Soft. Nervous system: No focal deficits. LABS: White count improved to 7.5. Cultures are negative so far. DISCHARGE ADVICE AND MEDICATIONS: 1. Diet is cardiac. 2. Activity limited until follow-up. 3. Follow-up with in two to three days. 4. Follow-up with Dr. Mistry as advised. Medications will be as follows: 1. Cipro 500 mg p.o. b.i.d. for 5 days. 2. Hydrocodone 1 tablet q.6 p.r.n. 3. Flagyl 500 mg t.i.d. for 5 days. 4. Phenergan 25 mg q6h p.r.n. Once again, the patient will be discharged in a stable condition with guarded prognosis. DONITAD
== END 2017-04-15 12:57 | disposition home or self-care (01) ==
LOC: EC 21:18 → 3SUR 04-14 01:21 → INTOOBSV 04-14 01:21
PROVIDERS: ADMIT Hospitalist; ATTEND Hospitalist
DX: R10.9 Unspecified abdominal pain (principal); N39.0 Urinary tract infection, site not specified; A09 Infectious gastroenteritis and colitis, unspecified; R11.2 Nausea with vomiting, unspecified; F41.9 Anxiety disorder, unspecified; M19.90 Unspecified osteoarthritis, unspecified site; Z86.14 Personal history of Methicillin resistant Staphylococcus aureus infection; F12.90 Cannabis use, unspecified, uncomplicated; F17.210 Nicotine dependence, cigarettes, uncomplicated
CPT/HCPCS: 96376 ×2; 96361 ×4; 96365; 96366; 96367; 96375 ×3; 96372; 99285; 36415; 80053 ×2; 85652; 83605; 85025 ×2; 86140; 81001; 81025; 87040; 87086; 74177; G0378 ×2; S4990 ×2; J1644; J2765; J2405 ×2; J1956 ×2; J0696; J1885 ×2; J1170 ×3; Q9967; C9113 ×2; 96374

== ENCOUNTER → 2017-05-03 | Outpatient (CLI) | payer OTHER ==
--- NOTE | 2017-05-03 15:11 | XR ---
Two-view spine HISTORY: Pain, R 52 Frontal and lateral views of the cervical, thoracic, lumbar spine submitted on a total of 10 images Relation to prior lumbar spine 04/01/2017, thoracic spine 04/01/2017 There is an underlying thoracic scoliosis. Levoscoliosis is centered at approximately L2-3. Curvature measures approximately 12-14 degrees similar to prior exam. There is reversal the normal cervical lo rdosis possibly due to muscle spasm. Cervical, thoracic, lumbar vertebral bodies show preserved heigh t. Bone mineralization is maintained. Disc spaces are maintained. Prevertebral paraspinal soft tissue s are normal. IMPRESSION: Scoliosis, additional findings above.
== END ==
LOC: RADXRMAIN 11:53
PROVIDERS: ATTEND Internal Medicine
DX: M41.86 Other forms of scoliosis, lumbar region (principal); M41.82 Other forms of scoliosis, cervical region; M41.84 Other forms of scoliosis, thoracic region
CPT/HCPCS: 72082

== ENCOUNTER 2017-12-01 11:13 | Emergency (ER) | payer OTHER ==
[2017-12-01] MEDS ORDERED: DIAZEPAM 5 MG TAB PO STA (12:05)
[2017-12-01] MEDS ORDERED: KETOROLAC 60 MG/2 ML VIAL IM STA (12:05)
[2017-12-01] MEDS ORDERED: HYDROcodone/APAP 5-325MG 1 EACH TAB PO STA (12:05)
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
[2017-12-01 13:55] VITALS: BP 129/75; PULSE 88; RESP 20; TEMP 98.2
== END 2017-12-01 13:40 | disposition home or self-care (01) ==
LOC: EC 11:13
DX: S16.1XXA Strain of muscle, fascia and tendon at neck level, initial encounter (principal); S13.4XXA Sprain of ligaments of cervical spine, initial encounter; F17.200 Nicotine dependence, unspecified, uncomplicated; Z86.14 Personal history of Methicillin resistant Staphylococcus aureus infection; V49.9XXA Car occupant (driver) (passenger) injured in unspecified traffic accident, initial encounter; Y92.410 Unspecified street and highway as the place of occurrence of the external cause
CPT/HCPCS: 72125; 70450; 99284; 96372; J1885

== ENCOUNTER 2018-06-30 21:21 | Emergency (ER) | payer OTHER ==
[2018-06-30 22:03] VITALS: BP 113/67; PULSE 97; RESP 18; TEMP 98.6
--- NOTE | 2018-06-30 22:38 | ED ---
Skin/Abscess/FB HPI - General Chief complaint: Skin/Abscess/Foreign Body Stated complaint: rash Time Seen by Provider: 06/30/18 22:08 Source: patient, RN notes reviewed Mode of arrival: ambulatory Limitations: no limitations - History of Present Illness Initial comments: This is a 33-year-old female presents to the emergency department with chief complaint of rash. Patient states that she believes she is being bit by bites. She states that they recently adopted a cat and it was infested with fleas and mites. She states that they have since put the cat down. She states that they have cleaned they're closed, bedding, carpets and furniture. She states that she followed up with her primary care provider on Wednesday and was prescribed hydrocortisone cream for the rash. Patient states that she thinks she needs permethrin to treat the mites. She states that she has already treated her cats. Denies fever, chills, chest pain, shortness of breath, abdominal pain, nausea or vomiting, constipation or diarrhea, dysuria or hematuria, numbness or tingling, headache or vision changes. - Related Data Home Medications Medication Instructions Recorded Confirmed Ibuprofen [Motrin] 800 mg PO Q8H PRN 12/01/17 12/01/17 Previous Rx's Medication Instructions Recorded Diazepam [Valium] 5 mg PO HS #10 tab 12/01/17 HYDROcodone/APAP 5-325MG [[place]ner 1 tab PO Q6HR PRN #20 tab 12/01/17 5-325] Hydrocortisone Cream 1 applic TOPICAL TID #1 tube 06/30/18 [Hydrocortisone 2.5% Cream] Allergies Allergy/AdvReac Type Severity Reaction Status Date / Time No Known Allergies Allergy Verified 06/30/18 22:03 Review of Systems ROS Statement: Those systems with pertinent positive or pertinent negative responses have been documented in the HPI. ROS Other: All systems not noted in ROS Statement are negative. Past Medical History Past Medical History: No Reported History Additional Past Medical History / Comment(s): DJD, low back pain, colitis History of Any Multi-Drug Resistant Organisms: MRSA Date of last positivie culture/infection: 2012 MDRO Source:: left hand Past Surgical History: Tonsillectomy Past Anesthesia/Blood Transfusion Reactions: No Reported Reaction Past Psychological History: Anxiety Smoking Status: Current every day smoker Past Alcohol Use History: Occasional Past Drug Use History: Marijuana - Past Family History Father Family Medical History: No Reported History Additional Family Medical History / Comment(s): Father is healthy Mother Family Medical History: No Reported History Additional Family Medical History / Comment(s): Mother is healthy General Exam - General Exam Comments Initial Comments: General: Awake and alert, well-developed; in no apparent distress. HEENT: Head atraumatic, normocephalic. Pupils are equal, round and reactive to light. Extraocular movements intact. Oropharynx moist without erythema or exudate. Neck: Supple. Normal ROM. Cardiovascular: Regular rate and rhythm. No murmurs, rubs or gallops. Chest symmetrical. Respiratory: Lungs clear to auscultation bilaterally. No wheezes, rales or rhonchi. Normal respiratory effort with no use of accessory muscles. Musculoskeletal: Normal ROM, no tenderness bilateral upper and lower extremities. Ambulating normally. Skin: Erythematous maculopapular rash on bilateral forearms. Neurological: Alert and oriented x3. CN II-XII grossly intact. Speech is fluent and answers are appropriate. No focal neuro deficits. Psychiatric: Normal mood and affect. No overt signs of depression or anxiety noted. Limitations: no limitations Course Vital Signs 06/30/18 22:00 Temperature 98.6 F Pulse Rate 97 Respiratory 18 Rate Blood Pressure 113/67 O2 Sat by Pulse 99 Oximetry Medical Decision Making - Medical Decision Making This is a 33-year-old female who presents to the emergency department with chief complaint of rash. Patient reports she believes she is infested with mites. She states that one of her cats had mites and fleas but has since been put down. She reports that she has treated the home as well as her other cat. Patient presents to the emergency department with her boyfriend who is experiencing similar symptoms. She states that she did follow up with her primary care provider who gave her hydrocortisone cream. I explained to patient that mites do not billowing human skin. They do cause a mild pruritic dermatitis from bites. Educated patient that the reason she may be seeing bugs in her home is because she used a fogger and is probably seeing the bugs. Recommended continuing hydrocortisone cream. Recommended possibly re-fogging home. Patient states that she needs a work note to return. Her vital signs are stable and she is in no acute distress. Patient will be written a prescription for hydrocortisone cream. Patient is in agreement with plan and voices understanding. All questions were answered. Disposition Clinical Impression: Dermatitis Disposition: HOME SELF-CARE Condition: Good Instructions: Dermatitis (ED) Additional Instructions: Please take medications as prescribed. Please follow up with primary care provider within 1-2 days. Return to emergency department if symptoms should worsen or any concerns arise. Prescriptions: Hydrocortisone Cream [Hydrocortisone 2.5% Cream] 1 applic TOPICAL TID #1 tube Is patient prescribed a controlled substance at d/c from ED?: No Referrals: Enrrique Rivero MD [Primary Care Provider] - 1-2 days Time of Disposition: 22:38
== END 2018-06-30 22:40 | disposition home or self-care (01) ==
LOC: EC 21:21
DX: L30.9 Dermatitis, unspecified (principal); F17.200 Nicotine dependence, unspecified, uncomplicated; Z86.14 Personal history of Methicillin resistant Staphylococcus aureus infection
CPT/HCPCS: 99282